=== PATIENT | female | born 1965 | race Caucasian/White ===

== ENCOUNTER → 2020-08-13 | Outpatient (CLI) | payer BC ==
[~2020-08-13] MED LIST: LIPITOR10 MG PO; MICROZIDE12.5 MG PO; PRINIVIL5 MG PO; [UNRECOGNIZED DRUG - OTHER] PO
[2020-08-13 12:44] LABS: RED BLOOD COUNT 4.51 M/UL (4.00-5.10); WHITE BLOOD COUNT 13.6 K/UL (4.5-11.0)
[2020-08-13 13:14] LABS: BUN/CREATININE RATIO 17 (0-10)
== END ==
LOC: LAB 10:40
PROVIDERS: Physician Assistant
DX: R50.9 Fever, unspecified (principal); R91.8 Other nonspecific abnormal finding of lung field
CPT/HCPCS: 36415; 71046; 80048; 81001; 85025; 87040

== ENCOUNTER → 2020-08-14 | Outpatient (CLI) | payer BC | LOC: CT 07:18 | DX: R31.9 Hematuria, unspecified (principal); R91.8 Other nonspecific abnormal finding of lung field | CPT/HCPCS: 71260; Q9967 ==

== ENCOUNTER → 2020-08-29 | Outpatient (CLI) | payer BC | LOC: RAD 11:29 | DX: J18.9 Pneumonia, unspecified organism (principal) | CPT/HCPCS: 71046 ==

== ENCOUNTER 2020-11-18 06:31 | Emergency (ER) | payer BC ==
[~2020-11-18] VITALS: Ht 165.1 cm; Wt 68.0 kg
== END 2020-11-18 10:00 | disposition home or self-care (01) ==
LOC: ER1 06:31
DX: Z23 Encounter for immunization (principal); U07.1 COVID-19; E78.5 Hyperlipidemia, unspecified; I10 Essential (primary) hypertension; Z88.0 Allergy status to penicillin; Z88.1 Allergy status to other antibiotic agents
CPT/HCPCS: 71045; 99284